=== PATIENT | female | born 1955 | race Caucasian/White ===

== ENCOUNTER 2017-02-05 02:16 | Emergency (ER) | payer OTHER ==
[~2017-02-05] VITALS: Ht 162.6 cm; Wt 102.3 kg
[~2017-02-05 02:16] MED LIST: HYDR25TA4 PO; LISI2.5T PO; METF500T4 PO; SIMV10TA4 PO
[2017-02-05 02:19] VITALS: BP 192/103; PULSE 65; RESP 16; O2SAT 98
--- NOTE | 2017-02-05 02:27 | ED.REPORT ---
HPI-Abd Pain F 40 and Over Date of Service Feb 05, 2017 ED Provider: Gabe Damon MD A pre-diabetic 61 year old female with a history of nephrolithiasis and HTN presents to the ED complaining of right lower quadrant abdominal pain onset 2300. Associated symptoms include vomiting. She denies any current nausea, describing that there is nothing left in her stomach, and denies any hematuria.The patient denies any baseline vomiting. 1 week ago, the patient had similar symptoms that resolved 1-1.5 hours after onset. 1.5 years ago, the patient visited the hospital with similar symptoms and was diagnosed with nephrolithiasis. Nursing Notes Stated Complaint: ABDOMINAL PAIN Chief Complaint: Female Abdominal Pain Nursing Notes Reviewed: Yes Allergies: Coded Allergies: No Known Allergies (Verified , 02/05/17) Scheduled Hydrochlorothiazide (Hydrochlorothiazide) 25 Mg Tablet 0 PO HS Lisinopril (Lisinopril) 2.5 Mg Tablet 0 PO DAILY Metformin (Metformin) 500 Mg Tablet 500 MG PO BIDWM Simvastatin (Simvastatin) 10 Mg Tablet 0 PO HS General Time Seen by MD: 02:25 Chief Complaint Abdominal pain Hx Obtained From: Patient Arrived By: Walk-in Sudden in Onset?: No Onset Occurred: 1 - 4 hours ago (2300 yesterday.) Symptom Duration: Since onset Progression since Onset: Unchanged Location: : LLQ Severity: Current: Moderate Severity: Maximum: Moderate Recent Healthcare: No recent doctor visit Similar Sx Previous: No Past Medical History Past Medical History Replacement hormones, periodic Celebrex, Pre-diabetic. Patient visited hospital approximately 1.5 years ago for similar abdominal pain and vomiting, and was diagnosed with nephrolithiasis. Reports: Hypertension Past Surgical History Reports: Cholecystectomy, Denies: Appendectomy (Patient does not think that she has had appendectomy in the past.) Social History Alcohol Use: "Social" Drug Use: Denies drug use Ambulatory Status Independent Review of Systems GI: Reports: Abdominal pain, Vomiting, Denies: Nausea Female: Denies: Hematuria Complete sys rev & neg: except as marked. Physical Exam Vital Signs Vital Signs (First) Date Time Temp Pulse Resp B/P Pulse Ox O2 Delivery O2 Flow Rate FiO2 02/05/17 02:19 36.4 65 16 192/103 98 Room Air Initial VS: Reviewed, Vital signs abnormal General/Constitutional: Awake, Alert Respiratory / Chest: Atraumatic, Breath sounds NL, Breath sounds = bilat, No respiratory distress, No rales, No rhonchi, No wheezing Cardiovascular: Heart rate NL, Regular rhythm, Heart sounds NL, No gallop, No murmurs, No rubs Tenderness/Guarding/Rebound: Positive: Tender RLQ... (Moderate) Mild right CVA tenderness. Head / Eyes: Atraumatic, Normocephalic, PERRL, EOMI ENT: Atraumatic, Mucous membranes moist Skin: Atraumatic, Color NL, Warm, Dry Neurologic: Oriented X3, Speech NL Upper Extremity / MS: No swelling, No edema Lower Extremity / Pelvis / MS: No swelling, No edema Interpretation & Diagnostics Lab Results Interpretation Result Diagram: 02/05/17 0255 02/05/17 0255 Test 02/05/17 02:55 White Blood Count 10.7th/mm3 (3.8-10.1) Red Blood Count 4.77mil/mm3 (3.90-5.20) Hemoglobin 14.0g/dL (12.0-15.6) Hematocrit 40.9% (35.0-46.0) Mean Corpuscular Volume 85.7fL (81-100) Mean Corpuscular Hemoglobin 29.4pg (27.0-35.0) Mean Corpuscular Hemoglobin Concent 34.2% (32.0-37.0) Red Cell Distribution Width 13.6% (12.3-15.4) Platelet Count 299bil/L (150-400) Neutrophils (%) (Auto) 69.0% (40-74) Lymphocytes (%) (Auto) 23.4% (14-46) Monocytes (%) (Auto) 4.4% (4-12) Eosinophils (%) (Auto) 2.5% (0-5) Basophils (%) (Auto) 0.3% (0-3) Prothrombin Time 9.5sec (8.1-12.5) Prothromb Time International Ratio 0.89ratio Urine Color Yellow (YELLOW) Urine Appearance Hazy (CLEAR,HAZY) Urine pH 5.5 (5.0-8.0) Urine Specific Gideon 1.025 (1.003-1.035) Urine Protein Negativemg/dL (NEG,TRACE) Urine Glucose (UA) Negativemg/dL (NEGATIVE) Urine Ketones 15mg/dL (NEGATIVE) Urine Occult Blood Moderate (NEGATIVE) Urine Nitrite Negative (NEGATIVE) Urine Bilirubin Negative (NEGATIVE) Urine Urobilinogen Normalmg/dL (NORMAL) Urine Leukocyte Esterase Negative (NEGATIVE) Urine RBC 3-10/hpf (0-2) Urine WBC 0-5/hpf (0-5) Urine Epithelial Cells Many/hpf (NONE-MOD) Urine Crystals Oxalic acid crystals (NONE Urine Bacteria Few/hpf (NONE-FEW) Urine Hyaline Casts None/lpf (NONE) Urine Granular Casts None seen (NONE SEEN) Urine Waxy Casts None seen (NONE SEEN) Urine Red Blood Cell Casts None seen (NONE SEEN) Urine White Blood Cell Casts None seen (NONE SEEN) Urine Mucus Present (None Seen) Urine Trichomonas None seen (NONE SEEN) Urine Yeast None (NONE SEEN) Urinalysis Comment None Urine Culture Reflexed Not indicated Sodium Level 141mEq/L (134-144) Potassium Level 3.5mEq/L (3.5-5.2) Chloride Level 99mEq/L (97-108) Carbon Dioxide Level 22mmol/L (18-29) Blood Urea Nitrogen 18mg/dL (8-27) Creatinine 0.69mg/dL (0.57-1.00) Estimat Glomerular Filtration Rate 123mL/min (>59) Glucose Level 143mg/dL (60-99) Calcium Level 10.2mg/dL (8.5-10.1) Magnesium Level 1.8mg/dL (1.6-2.6) Total Bilirubin 0.4mg/dL (0.0-1.2) Aspartate Amino Transf (AST/SGOT) 24U/L (0-50) Alanine Aminotransferase (ALT/SGPT) 16U/L (0-32) Alkaline Phosphatase 57U/L (25-165) Total Protein 7.5g/dL (6.4-8.4) Albumin 4.2g/dL (3.4-5.0) Lipase 41U/L (13-60) Hold [place] Top Tube Received (Received) CT Abd / Pelvis Interpretation IMPRESSION: 4 mm distal right ureter stone with moderate right hydronephrosis. Signed by Rizwan Soto M.D. 02/05/2017, 5330 Interpretation / Wet Read by: Interpret - Radiologist Re-Eval/Medical Decision Med Decision/Clinical Course 61-year-old female presents with mild right flank pain and right lower quadrant tenderness. She had 6-10 red cells per high-power field on the urine. Her labs were unremarkable. CT scan shows that she has a 4 mm obstructing right distal ureteral stone. She was given Flomax and discharged home to push fluids. She will follow up with her primary doctor or urologist as needed for recurrent pain. I suspect that this stone will pass on its own. Source of Hx: Old records Re-Evaluation/Progress #1: Time of Eval: 02:31 Re-Evaluation/Progress Note: Explained plan for urine analysis. Re-Evaluation/Progress #2: Time of Eval: 05:14 Re-Evaluation/Progress Note: Rechecked patient and explained CT results. Patient is much more comftorable and wants to go home to try and pass stone at home. Explained diagnosis and plan for discharge. Patient understands and agrees with the plan. Counseled Regarding: Diagnosis, Lab results, Need for follow-up, When/why to return to ED Discharge & Departure Primary Impression: Ureterolithiasis Disposition: Home Discharge Condition All VS Reviewed: Yes Condition: Improved Patient Instructions: Renal Colic (ED) Additional Instructions: You have a 4 mm right distal ureteral stone. This should pass on its own. The Flomax may help with that. Drink plenty of fluids. Tylenol and/or ibuprofen as needed for pain. Follow-up with your primary doctor or urologist if you have persistent pain. Referrals: Leslie Vergara PA-C (PCP) Diegoibwillian Attestation Portions of this note were transcribed by Ed Cortez. I, Dr. Damon personally performed the history, physical exam and medical decision-making; I reviewed and confirmed the accuracy of the information in the transcribed note. Signed by: Jaime Navas, 02/05/2017, 0533. copies to: Leslie Vergara PA-C, Howard L MD Feb 05, 2017 02:27 Ed Cortez Feb 05, 2017 02:33
[2017-02-05] MEDS ORDERED: 0.9% Sodium Chloride 1,000 ML IV ONE (02:33)
[2017-02-05] MEDS ORDERED: Ondansetron 2 mg/mL 2 mL Inj IVPUSH PRN (02:35)
[2017-02-05 03:04] LABS: BASOPHILS % (AUTO) 0.3 % (0-3); EOSINOPHILS % (AUTO) 2.5 % (0-5); MONOCYTES % (AUTO) 4.4 % (4-12); Mean Corpuscular Hemoglobin 29.4 pg (27.0-35.0); Mean Corpuscular Volume 85.7 fL (81-100); Platelet Count 299 bil/L (150-400)
[2017-02-05 03:15] LABS: APPEARANCE,URINE HAZY (CLEAR,HAZY); COLOR,URINE YELLOW (YELLOW); OCCULT BLOOD,URINE MODERATE (NEGATIVE); PH,URINE 5.5 (5.0-8.0); UROBILINOGEN,URINE NORMAL (NORMAL)
[2017-02-05 03:23] LABS: INR 0.89 ratio
[2017-02-05 03:27] LABS: Magnesium 1.8 mg/dL (1.6-2.6)
[2017-02-05 05:58] VITALS: BP 128/70; PULSE 60; RESP 24; O2SAT 93
--- NOTE | 2017-02-05 08:47 | DRSVH ---
PROCEDURE: CT ABDOMEN AND PELVIS WITH CONTRAST ([id number]) INDICATIONS: RLQ abdominal pain TECHNIQUE: After the administration of intravenous contrast, 5 mm thick sections acquired from the diaphragm to the symphysis. 5 mm coronal and sagittal reformats were acquired. For radiation dose reduction, the following was used: automated exposure control, adjustment of mA and/or kV according to patient gabriela marquez COMPARISON: [facility], CT, KUB - CT ([facility]), 12/07/2014, 18:59. FINDINGS: Image quality: Excellent. ABDOMEN: Lung bases: Lung bases are clear. Heart size is normal. Solid organs: Tiny indeterminate hepatic and splenic hypodensities are noted, unchanged from 12/07/19 15, most likely small cysts. Liver and spleen are normal in size and enhancement. There is pneumobil ia. Gallbladder is surgically absent. Biliary system is non dilated. Pancreas enhances normally. No adrenal nodules. There is a 3 mm stone at the right uterovesical junction. There is mild right hydronephrosis and righ t hydroureter. Mild perinephric stranding the right kidney is present. No left renal stone or hydrone phrosis. There are couple of low-density nodules in left kidney, probably cysts. Kidneys demonstrate normal size and enhancement. Peritoneum and bowel: Bowel loops demonstrate normal wall thickness and caliber. There are scattere d colonic diverticula. No active diverticulitis. Appendix is normal. No free fluid or air. Nodes and vessels: No retroperitoneal or mesenteric adenopathy by size criteria. Aorta and inferior vena cava are normal in size. Miscellaneous: There is a small periumbilical hernia containing fat. PELVIS: Genitourinary: Bladder is semicontracted; bladder wall thickness is uniform. Uterus is unremarkable. Miscellaneous: No inguinal hernias or adenopathy. Bones: No suspicious bony lesions. No vertebral body compression fractures. IMPRESSION: 1. A 3 mm obstructive stone in the right uterovesical junction. There is mild right hydronephrosis an d hydroureter with perinephric stranding. 2. Colonic diverticulosis. No active diverticulitis. 3. Cholecystectomy. There is pneumobilia. 4. Small periumbilical hernia. No significant discrepancy with the night shift supervisor radiology preliminary report. Dictated by: Erin Collins M.D. on 02/05/2017 at 8:36 Approved by: Erin Collins M.D. on 02/05/2017 at 8:46
== END 2017-02-05 06:00 | disposition home or self-care (01) ==
LOC: SED 02:16
DX: N20.1 Calculus of ureter (principal); I10 Essential (primary) hypertension; Z79.84 Long term (current) use of oral hypoglycemic drugs; Z90.49 Acquired absence of other specified parts of digestive tract
CPT/HCPCS: 36415; 74177; 80053; 81000; 83690; 83735; 85025; 85610; 96361; 96374; 99285; J2405; J7030; Q9967